=== PATIENT | female | born 1930 | race Caucasian/White ===

== ENCOUNTER 2019-11-02 07:47 | Inpatient (IN) | payer MEDICARE ==
[~2019-11-02] VITALS: Ht 139.7 cm; Wt 65.9 kg
[~2019-11-02 07:47] MED LIST: ACET325T55 PO; ATEN50TA PO; GABA-530 PO; LISI1TAB29 PO; MELO-100 PO; MULT80TA; OMEP20CA15 PO; OXYB10TA4 PO
--- NOTE | 2019-11-02 08:03 | NUR ---
patient to ct.
[2019-11-02] MEDS ORDERED: normal saline 1000ml 1,000 ML IV ONE (08:10)
[2019-11-02] MEDS ORDERED: iohexol 350MG/ML 100ml bottle IV ONE (08:10)
[2019-11-02 08:46] LABS: BASOPHILS # (AUTO) 0.1 X10'3 (0-0.2); BASOPHILS % (AUTO) 0.7 % (0-1); EOSINOPHILS # (AUTO) 0.1 X10'3 (0-0.9); EOSINOPHILS % (AUTO) 1.3 % (0-6); HEMATOCRIT 26.6 % (35.0-45.0); HEMOGLOBIN 8.7 g/dl (12.0-16.0); LYMPHOCYTES # (AUTO) 1.8 X10'3 (1.1-4.8); LYMPHOCYTES % (AUTO) 24.8 % (21-51); MEAN CORPUSCULAR HEMOGLOBIN 24.3 PG (27.0-31.0); MEAN CORPUSCULAR HGB CONC 32.6 g/dL (33.0-36.5); MEAN CORPUSCULAR VOLUME 74.7 FL (78-98); MEAN PLATELET VOLUME 7.5 FL (7.4-10.4); MONOCYTES # (AUTO) 0.4 X10'3 (0-0.9); MONOCYTES % (AUTO) 6.3 % (2-12); NEUTROPHILS # (AUTO) 4.7 X10'3 (1.8-7.7); NEUTROPHILS % (AUTO) 66.9 % (42-75); PLATELET COUNT 303 X10'3 (140-440); RED BLOOD COUNT 3.56 X10'6 (4.20-5.60); WHITE BLOOD COUNT 7.1 X10'3 (4.5-11.0)
--- NOTE | 2019-11-02 08:48 | NUR ---
completed tele neuro.
[2019-11-02 09:00] LABS: PARTIAL THROMBOPLASTIN TIME 27 SECONDS (22-32)
[2019-11-02] MEDS ORDERED: ATEN-169 PO (09:04)
[2019-11-02 09:12] LABS: CLARITY,URINE CLEAR (Clear); COLOR,URINE STRAW (Yellow); GLUCOSE, URINE NEGATIVE (Neg); KETONES,URINE NEGATIVE (Neg); LEUKOCYTE ESTERASE ,URINE NEGATIVE (Neg); NITRITES, URINE NEGATIVE (Neg); OCCULT BLOOD,URINE TRACE-INTACT (Neg); PROTEIN,URINE NEGATIVE (Neg); UROBILINOGEN,URINE 0.2 E.U/dL (0.2-1.0)
[2019-11-02 09:13] LABS: UA COLLECTION TYPE STRAIGHT CATH
[2019-11-02 09:21] LABS: MUCUS STRANDS FEW /LPF (Neg); SQUAMOUS EPITHELIAL CELL,UR FEW /LPF (FEW)
[2019-11-02 09:22] LABS: BACTERIA,URINE FEW /HPF (Neg)
[2019-11-02 09:23] LABS: RBC,URINE 0-2 /HPF (0-2); WBC,URINE 0-4 /HPF (0-4)
[2019-11-02] MEDS ORDERED: ondansetron/PF 4mg/2ml inj IV PRN (09:35)
[2019-11-02] MEDS ORDERED: acetaminophen 325mg tablet PO PRN ×2 (09:35)
[2019-11-02] MEDS ORDERED: magnesium hydroxide 30ml (MOM) UD suspension PO PRN (09:35)
[2019-11-02] MEDS ORDERED: morphine 2 MG/ML inj. syringe IV PRN ×2 (09:35)
[2019-11-02] MEDS ORDERED: mag hydrox/Alum hydrox/simeth 30ml oral suspension PO PRN (09:35)
[2019-11-02 09:37] LABS: ALANINE AMINOTRANSFERASE 15 U/L (12-78); ALBUMIN 3.1 G/DL (3.4-5.0); ALBUMIN/GLOBULIN RATIO 0.9 (1.1-1.5); ALKALINE PHOSPHATASE 77 IU/L (46-116); ANION GAP 10 (8-16); ASPARTATE AMINO TRANSFERASE 13 U/L (10-37); BILIRUBIN,TOTAL 0.2 MG/DL (0.1-1.0); BLOOD UREA NITROGEN 26 MG/DL (7-18); BUN/CREATININE RATIO 21.3 (6.6-38.0); CHLORIDE 106 MMOL/L (99-107); CREATININE 1.22 MG/DL (0.40-0.90); GLUCOSE 99 MG/DL (70-104); POTASSIUM 3.9 MMOL/L (3.5-5.1); SODIUM 138 MMOL/L (135-145); TOTAL CARBON DIOXIDE 21.7 MMOL/L (24-32); TOTAL PROTEIN 6.4 G/DL (6.4-8.2); TROPONIN I < 0.04 NG/ML (0.0-0.05); eGFR 42 ML/MIN
[2019-11-02] MEDS ORDERED: OXYB5TAB16 PO (09:39)
[2019-11-02 10:11] LABS: CHOL/HDL RATIO 2.3 (0.00-4.99); CHOLESTEROL 149 MG/DL (0-200); HDL CHOLESTEROL 65 MG/DL (35-60); LDL CHOLESTEROL 65 MG/DL (50-100); TRIGLYCERIDES 128 MG/DL (20-135)
--- NOTE | 2019-11-02 10:29 | NUR ---
patient passed swallow eval without difficulty.Patient to MRI.
[2019-11-02 11:30] VITALS: BP 174/149
--- NOTE | 2019-11-02 12:07 | NUR ---
PAGER ID: [phone] MESSAGE: [id number] Claudio Ramirez in [id number]- received call from [facility], radiologist wants to discuss results of MRI w you. Please call to speak w Dr Oliva
[2019-11-02 16:22] VITALS: BP 149/72
[2019-11-02] MEDS: aspirin 81mg tablet.DR PO SCH (17:12)
[2019-11-02 18:00] VITALS: BP 162/67
[2019-11-02 22:00] VITALS: BP 166/52
--- NOTE | 2019-11-02 22:30 | NUR ---
I did send a message to [facility] to do a phone consult for medication recommendation regarding the new onset Afib per Dr. Polo's request.
[2019-11-03 02:00] VITALS: BP 129/70
[2019-11-03 05:47] LABS: BASOPHILS # (AUTO) 0.1 X10'3 (0-0.2); EOSINOPHILS # (AUTO) 0.2 X10'3 (0-0.9); EOSINOPHILS % (AUTO) 2.3 % (0-6); LYMPHOCYTES # (AUTO) 2.3 X10'3 (1.1-4.8); LYMPHOCYTES % (AUTO) 33.2 % (21-51); MEAN CORPUSCULAR HEMOGLOBIN 23.9 PG (27.0-31.0); MEAN CORPUSCULAR HGB CONC 32.2 g/dL (33.0-36.5); MEAN CORPUSCULAR VOLUME 74.2 FL (78-98); MEAN PLATELET VOLUME 7.8 FL (7.4-10.4); MONOCYTES # (AUTO) 0.5 X10'3 (0-0.9); MONOCYTES % (AUTO) 7.8 % (2-12); NEUTROPHILS # (AUTO) 3.8 X10'3 (1.8-7.7); NEUTROPHILS % (AUTO) 55.7 % (42-75); PLATELET COUNT 304 X10'3 (140-440); RED BLOOD COUNT 3.77 X10'6 (4.20-5.60); WHITE BLOOD COUNT 6.9 X10'3 (4.5-11.0)
[2019-11-03 05:52] LABS: ALBUMIN 3.1 G/DL (3.4-5.0); ANION GAP 10 (8-16); BLOOD UREA NITROGEN 23 MG/DL (7-18); BUN/CREATININE RATIO 19.7 (6.6-38.0); CALCIUM 8.2 MG/DL (8.5-10.1); CHLORIDE 107 MMOL/L (99-107); CREATININE 1.17 MG/DL (0.40-0.90); GLUCOSE 96 MG/DL (70-104); POTASSIUM 3.9 MMOL/L (3.5-5.1); SODIUM 142 MMOL/L (135-145); TOTAL CARBON DIOXIDE 25.1 MMOL/L (24-32); eGFR 44 ML/MIN
[2019-11-03 06:00] VITALS: BP 143/50
--- NOTE | 2019-11-03 06:31 | NUR ---
Problems reprioritized. Patient report given, questions answered & plan of care reviewed with Annamaria SMITH.
[2019-11-03] MEDS ORDERED: pantoprazole 40mg Tablet.DR PO SCH (07:30)
[2019-11-03] MEDS: aspirin 81mg tablet.DR PO SCH (07:55)
[2019-11-03] MEDS ORDERED: oxybutynin 5mg tablet PO SCH ×2 (08:00)
[2019-11-03] MEDS ORDERED: aspirin 81mg tablet.DR PO SCH (08:00)
[2019-11-03] MEDS ORDERED: multivitamins, therapeutics tablet PO SCH (08:00)
[2019-11-03 10:00] VITALS: BP 122/74
[2019-11-03] MEDS ORDERED: ASPI-1071 PO (12:39)
--- NOTE | 2019-11-03 13:32 | NUR ---
Patient ready for D/C PIV removedm, cannula intact. Belongings gathered and sent home with patient. Medication reviewed with patient. Patient and sister lori aware that patient needs to follow up with PCP in [address] scan and anticoags.
== END 2019-11-03 13:35 | disposition home or self-care (01) | DRG 65 ==
LOC: ER 07:48 → ED HOLD 09:33 → ORTHO 4S 11:15
PROVIDERS: ADMIT Internal Medicine; ATTEND Internal Medicine
PROC: B3251ZZ Computerized Tomography (CT Scan) of Bilateral Common Carotid Arteries using Low Osmolar Contrast (ICD-10-PCS; principal; 2019-11-02)
PROC: B32G1ZZ Computerized Tomography (CT Scan) of Bilateral Vertebral Arteries using Low Osmolar Contrast (ICD-10-PCS; 2019-11-02)
PROC: B3281ZZ Computerized Tomography (CT Scan) of Bilateral Internal Carotid Arteries using Low Osmolar Contrast (ICD-10-PCS; 2019-11-02)
DX: I63.511 Cerebral infarction due to unspecified occlusion or stenosis of right middle cerebral artery (principal); G81.94 Hemiplegia, unspecified affecting left nondominant side; D50.9 Iron deficiency anemia, unspecified; I12.9 Hypertensive chronic kidney disease with stage 1 through stage 4 chronic kidney disease, or unspecified chronic kidney disease; I35.0 Nonrheumatic aortic (valve) stenosis; I48.0 Paroxysmal atrial fibrillation; N18.3 Chronic kidney disease, stage 3 (moderate); K21.9 Gastro-esophageal reflux disease without esophagitis; Z66 Do not resuscitate; Z79.82 Long term (current) use of aspirin; Z79.899 Other long term (current) drug therapy; Z90.710 Acquired absence of both cervix and uterus
CPT/HCPCS: 36415; 70450; 70496; 70498; 70544; 70551; 71045; 80048; 80053; 80061; 81001; 82948; 83880; 84484; 85025; 85610; 85651; 85730; 87081; 92508; 92616; 93005; 93306; 93308; 96360; 97161; 97530; 99285; G0378; J7030; Q9967